=== PATIENT | female | born 1960 | race Caucasian/White ===

== ENCOUNTER 2024-11-19 16:18 | Emergency (ER) | payer MEDICAID ==
[~2024-11-19] VITALS: Ht 152.4 cm; Wt 54.0 kg
[2024-11-19 16:39] VITALS: O2SAT 94
[2024-11-19] MEDS ORDERED: NAPR-677 MT (19:21)
[2024-11-19 19:36] VITALS: BP 140/88; PULSE 90; RESP 14; TEMP 36.6; O2SAT 97
== END 2024-11-19 19:38 | disposition home or self-care (01) ==
LOC: ER 16:18
DX: M17.12 Unilateral primary osteoarthritis, left knee (principal); Z79.1 Long term (current) use of non-steroidal anti-inflammatories (NSAID)
CPT/HCPCS: 73562; 93971; 99284

== ENCOUNTER 2025-02-25 12:42 | Emergency (ER) | payer MEDICAID ==
[~2025-02-25] VITALS: Ht 162.6 cm; Wt 70.0 kg
[~2025-02-25 12:42] MED LIST: NAPR-677 MT
[2025-02-25 13:00] VITALS: TEMP 36.8; O2SAT 97
[2025-02-25 13:49] LABS: BASOPHILS % 0.2 % (0.0-2.0); EOSINOPHILS % 3.1 % (0.0-5.0); HEMATOCRIT. 43.3 % (36.0-48.0); HEMOGLOBIN. 14.8 g/dL (12.0-16.0); LYMPHOCYTES % 23.6 % (20.0-50.0); MEAN PLATELET VOLUME 7.5 fl (7.4-10.4); MONOCYTES % 7.6 % (2.0-8.0); NEUTROPHILS % 65.5 % (40.0-76.0); PLATELET 525 x1000/uL (130-400); RED BLOOD CELL COUNT 4.81 mill/uL (4.2-5.4); RED CELL DISTRIBUTION WIDTH 12.3 % (11.6-14.6)
[2025-02-25 14:04] LABS: CREATININE 0.7 mg/dL (0.6-1.0); PROTEIN TOTAL 7.1 g/dL (6.0-8.3); UREA NITROGEN BLOOD 9 mg/dL (9-23)
[2025-02-25 14:05] LABS: ASPARTATE AMINOTRANSFERASE 18 IU/L (<34)
[2025-02-25 14:06] LABS: BILIRUBIN DIRECT 0.2 mg/dL (<=3.0); BILIRUBIN TOTAL 0.5 mg/dL (0.1-1.0)
[2025-02-25 14:08] LABS: CLARITY URINE CLEAR (CLEAR); COLOR URINE YELLOW (YELLOW); GLUCOSE URINE NEGATIVE (NEGATIVE); KETONES URINE NEGATIVE (NEGATIVE); LEUKOCYTE ESTERASE URINE 2+ (NEGATIVE); NITRITE URINE NEGATIVE (NEGATIVE); OCCULT BLOOD URINE NEGATIVE (NEGATIVE); PH URINE 6.0 (4.5-8.0); PROTEIN URINE NEGATIVE (NEGATIVE); SPECIFIC GRAVITY URINE 1.009 (1.005-1.030); UROBILINOGEN URINE 0.2 E.U./dL (0.2-1.0)
[2025-02-25 14:09] LABS: TROPONIN I HIGH SENSITIVITY < 4 ng/L (3.0-34)
[2025-02-25 14:24] LABS: BACTERIA URINE 3+; RBC URINE 0-2 /hpf (0-2); SQUAMOUS EPITHELIAL CELL URINE 1+ /lpf (RARE/1+); YEAST URINE NONE SEEN
[2025-02-25] MEDS: ONDANSETRON HCL 4MG/2ML INJ IV ONE (16:07)
[2025-02-25] MEDS ORDERED: METR-167 MT (16:08)
[2025-02-25] MEDS: MORPHINE SULFATE 4 MG/ML INJ (FOR IV/IM USE) IV ONE (16:08)
[2025-02-25] MEDS: CEFTRIAXONE 1GM/50ML 50 ML IV ONE (16:08)
[2025-02-25] MEDS ORDERED: ACET-2708 MT (16:12)
[2025-02-25] MEDS: METRONIDAZOLE 500 MG PREMIX 100 ML IV ONE (16:59)
[2025-02-25 17:48] VITALS: BP 107/67; PULSE 70; RESP 16; O2SAT 96
== END 2025-02-25 17:52 | disposition home or self-care (01) ==
LOC: ER 12:42 → CMPBEDREQ 18:59
DX: K57.30 Diverticulosis of large intestine without perforation or abscess without bleeding (principal); K44.9 Diaphragmatic hernia without obstruction or gangrene; Z98.890 Other specified postprocedural states; Z79.899 Other long term (current) drug therapy
CPT/HCPCS: 80076; 80048; 81003; 83690; 85025; 87086; 87186; 84484; 87077; 36415; 71045; 74176; 96367; 96365; 96375; 99285; J0696; J3490; J2405; J2270; Z7610; A4615

== ENCOUNTER 2025-03-03 17:45 | Emergency (ER) | payer MEDICAID ==
[~2025-03-03] VITALS: Ht 152.4 cm; Wt 59.0 kg
[~2025-03-03 17:45] MED LIST changes: +ACET-2708 MT; +METR-167 MT
[2025-03-03 17:56] VITALS: BP 136/84; PULSE 110; RESP 15; TEMP 98.1; O2SAT 99
[2025-03-03] MEDS ORDERED: POLY17PO3 MT (19:25)
[2025-03-03] MEDS: ONDANSETRON 4MG ODT PO ONE (19:43)
[2025-03-03] MEDS: IBUPROFEN 600MG TABLET PO ONE (19:43)
[2025-03-03] MEDS: ACETAMINOPHEN 325MG TABLET PO ONE (19:44)
== END 2025-03-03 19:49 | disposition home or self-care (01) ==
LOC: ER 17:45
DX: K57.32 Diverticulitis of large intestine without perforation or abscess without bleeding (principal); Z79.1 Long term (current) use of non-steroidal anti-inflammatories (NSAID); Z98.890 Other specified postprocedural states; Z79.899 Other long term (current) drug therapy
CPT/HCPCS: 99284; Q0162